=== PATIENT | male | born 2000 | race Caucasian/White ===

== ENCOUNTER 2024-04-21 17:58 | Emergency (ER) | payer OTHER, SELFPAY ==
[2024-04-21 17:59] VITALS: BP 157/106; BMI 25.7
--- NOTE | 2024-04-21 18:43 | ED.GENMED ---
History of Present Illness
General
Chief Complaint: Crisis Evaluation
Source: patient, family and police
Exam Limitations: none
Time Seen by Provider: 04/21/24 18:13
Nursing documentation reviewed up to this point in time: agreed with
History of Present Illness
History of Present Illness:
The patient is a 24-year-old male history of anxiety depression ADHD and impulsive explosive behavior. He was brought in via police after he was acting erratically at home with his family. He claims of had an argument with his parents prior to
arrival but the had no specific thoughts of actually harming his parents, homicidal or suicidal ideation. His parents were concerned of the violent behavior and wanted to file a 302 for psychiatric assessment. He denies any chest pain shortness of
breath or any discomfort at this time. No specific medical concerns. He has been taking his medications as prescribed he says.
Review of Systems
Review of Systems
Allergies reviewed?: Yes
All Other Systems: ROS reviewed and negative except as documented in HPI and ROS
Phy Exam
Physical Exam
Physical Exam:
GENERAL: Alert , in no apparent distress
EYE: pupils equal and reactive
NECK: Supple, no significant adenopathy.
ENT: o/p clr, mmm.
CARDIAC: Regular rate and rhythm .
LUNGS: Clear breath sounds bilaterally, no acute respiratory distress, no wheezes/rales/rhonchi
ABDOMEN: Soft, without focal tenderness, no r/g, no cvat
NEUROLOGICAL: Alert and oriented, no focal neuro deficits
SKIN: Warm and dry, skin intact.
MUSCULOSKELETAL: No edema, well perfused.
PSYCH: Normal and appropriate interaction.
Course
Orders/Labs/Results
Orders:
Orders
04/21/24 18:50
Crisis Consult Urgent
Reason for Consult: 302
04/21/24 18:53
ED Special Safety Observation ONCE
Observation level: One to Two
Vital Signs
Initial and Last Documented VS:
Initial Vital Signs
Temp Pulse BP Pulse Ox
97.9 F 111 157/106 97
04/21/24 17:59 04/21/24 17:59 04/21/24 17:59 04/21/24 17:59
Last Documented Vital Signs
Temp Pulse Resp BP Pulse Ox
97.9 F 71 18 124/90 97
04/21/24 17:59 04/21/24 22:14 04/21/24 22:14 04/21/24 22:14 04/21/24 22:14
MDM/Problems Addressed
MDM/Problems Addressed:
24-year-old male presenting to the emergency department today via police after family filing a 302 for combative behavior. Here patient is well-appearing in no distress no medical concerns at this time normal heart and lung examination patient
well-appearing interactive and cooperative. Patient will place in a psych facility. Cooperative throughout ER stay
*Critical Care Note
Total Time (30-74mins, 75-104mins- exclusive of procedures): Not Applicable
ED Attending Note
-
Portions of this chart may have been created with voice recognition software.� Occasional wrong word or��sound alike� substitutions may have occurred due to the inherent limitations of voice recognition software.
Discharge Plan
Departure
Patient Disposition: Psych Facility
Date of Disposition: 04/22/24
Time of Disposition: 02:57
Discharge Problem:
Outbursts of explosive behavior
Prescriptions:
No Action
trazodone 100 mg tablet
100 mg PO HSPRN PRN (Reason: sleep)
esomeprazole magnesium 40 mg capsule,delayed release(DR/EC)
40 mg PO DAILY
desvenlafaxine succinate 50 mg tablet extended release 24 hr
50 mg PO DAILY
guanfacine 4 mg tablet extended release 24 hr
4 mg PO DAILY
Vraylar 4.5 mg capsule
4.5 mg PO DAILY
Linzess 72 mcg capsule
72 mcg PO DAILY
Interventions
Interventions:
*General Assessment Last Done: 04/21/24 17:59
*Neglect/Abuse Screening Last Done: 04/21/24 17:59
*ED COVID-19 Vaccine History Last Done: 04/21/24 17:59
*Nursing Disposition Last Done: 04/22/24 05:05
ED-Psychological Assessment Last Done: 04/21/24 18:22
Discharge Date and Time
Discharge Date/Time: 04/22/24 05:06
Print Language: ANDORRAN
[2024-04-21 22:14] VITALS: BP 124/90
== END 2024-04-22 05:06 ==
LOC: EMR 17:58
PROVIDERS: EMERGENCY PHYSICIAN Emergency Medicine
DX: F63.81 Intermittent explosive disorder (principal); F32.A Depression, unspecified; F41.9 Anxiety disorder, unspecified; F90.9 Attention-deficit hyperactivity disorder, unspecified type; M41.9 Scoliosis, unspecified; F43.10 Post-traumatic stress disorder, unspecified; Z88.8 Allergy status to other drugs, medicaments and biological substances
CPT/HCPCS: 99285